=== PATIENT | female | born 1995 | race Caucasian/White ===

== ENCOUNTER 2019-01-24 20:38 | Outpatient (CLI) | payer OTHER, MEDICAID ==
[2019-01-24] MEDS ORDERED: LACTATED RINGER'S 1,000 ML IV (21:00)
[2019-01-24] MEDS: LACTATED RINGER'S 1,000 ML IV (21:02)
[2019-01-24] MEDS: AZITHROMYCIN 500MG/NS (PMX) 250 ML IVPB (21:18)
[2019-01-24 21:55] LABS: ADD MAN DIFF? NO
[2019-01-24 21:57] LABS: WHITE BLOOD COUNT 10.4 10^3/ul (4.8-10.8)
[2019-01-24 21:57] LABS: BASOPHIL # 0.1 10^3/ul (0.0-0.1); BASOPHILS % 0.5 % (0.0-2.0); EOSINOPHILS % 0.2 % (0.0-7.0); HEMATOCRIT 34.2 % (37.0-47.0); HEMOGLOBIN 11.7 g/dl (12.0-16.0); LYMPHOCYTES # 1.3 10^3/ul (0.8-2.9); LYMPHOCYTES % 12.8 % (15.0-51.0); MEAN CORPUSCULAR HEMOGLOBIN 33.2 pg (29.0-33.0); MEAN CORPUSCULAR HGB CONC 34.2 g/dl (32.0-37.0); MEAN CORPUSCULAR VOLUME 97.2 fl (82.0-101.0); MEAN PLATELET VOLUME 9.4 fl (7.4-10.4); MONOCYTE # 0.7 10^3/ul (0.3-0.9); MONOCYTES % 7.1 % (0.0-11.0); NEUTROPHIL # 8.2 10^3/ul (1.6-7.5); NEUTROPHILS % 78.9 % (39.0-77.0); PLATELET COUNT 251 10^3/UL (140-415); RED BLOOD COUNT 3.52 10^6/ul (4.20-5.40); RED CELL DISTRIBUTION WIDTH 12.3 % (11.5-14.5)
[2019-01-24 22:16] LABS: ALANINE AMINOTRANSFERASE 15 IU/L (13-69); ALBUMIN 3.8 g/dl (3.3-4.9); ALBUMIN/GLOBULIN RATIO 1.15; ALKALINE PHOSPHATASE 118 IU/L (42-121); ANION GAP 11 (5-13); ASPARTATE AMINO TRANSFERASE 26 IU/L (15-46); BILIRUBIN,INDIRECT 0.8 mg/dl (0-1.1); BILIRUBIN,TOTAL 0.8 mg/dl (0.2-1.3); BLOOD UREA NITROGEN 6 mg/dl (7-20); CARBON DIOXIDE 21 mmol/L (21-31); CHLORIDE 105 mmol/L (97-110); CREATININE 0.46 mg/dl (0.44-1.00); Estimated GFR > 60 mL/min (>60); GLUCOSE 81 mg/dl (70-220); SODIUM 137 mmol/L (135-144); TOTAL PROTEIN 7.1 g/dl (6.1-8.1)
[2019-01-24] MEDS: ACETAMINOPHEN 1000MG/100ML IV 100 ML IVPB (22:47)
== END 2019-01-24 23:55 | disposition home or self-care (01) ==
LOC: OBT 20:38 → L-D 20:40
DX: O26.892 Other specified pregnancy related conditions, second trimester (principal); Z3A.24 24 weeks gestation of pregnancy; J06.9 Acute upper respiratory infection, unspecified
CPT/HCPCS: 36415; 80053; 85025; 96360; 96361

== ENCOUNTER 2019-05-05 08:47 | Inpatient (IN) | payer OTHER ==
[2019-05-05] MEDS ORDERED: OXYTOCIN 30 UNITS/LR 500 ML IV ×2 (09:00→17:00)
[2019-05-05] MEDS ORDERED: IBUPROFEN 600 MG TAB PO (09:00)
[2019-05-05] MEDS ORDERED: LIDOCAINE 1% (MPF) 30 ML INJ INJ (09:00)
[2019-05-05] MEDS ORDERED: BUTORPHANOL 2 MG INJ IV (09:00)
[2019-05-05] MEDS ORDERED: METHYLERGONOVINE 0.2 MG INJ IM ×2 (09:00→17:00)
[2019-05-05] MEDS ORDERED: CARBOPROST 250 MCG INJ IM ×2 (09:00→17:00)
[2019-05-05] MEDS ORDERED: MISOPROSTOL 200 MCG TAB PR ×2 (09:00→17:00)
[2019-05-05] MEDS: LACTATED RINGER'S 1,000 ML IV ×3 (09:08→10:24)
[2019-05-05 09:19] LABS: ADD MAN DIFF? NO
[2019-05-05 09:21] LABS: WHITE BLOOD COUNT 14.5 10^3/ul (4.8-10.8)
[2019-05-05 09:21] LABS: BASOPHIL # 0.1 10^3/ul (0.0-0.1); BASOPHILS % 0.3 % (0.0-2.0); EOSINOPHILS % 0.3 % (0.0-7.0); HEMATOCRIT 37.7 % (37.0-47.0); HEMOGLOBIN 12.5 g/dl (12.0-16.0); LYMPHOCYTES # 2.2 10^3/ul (0.8-2.9); LYMPHOCYTES % 15.3 % (15.0-51.0); MEAN CORPUSCULAR HGB CONC 33.2 g/dl (32.0-37.0); MEAN CORPUSCULAR VOLUME 93.5 fl (82.0-101.0); MEAN PLATELET VOLUME 10.2 fl (7.4-10.4); MONOCYTES % 6.7 % (0.0-11.0); NEUTROPHIL # 11.2 10^3/ul (1.6-7.5); NEUTROPHILS % 76.8 % (39.0-77.0); PLATELET COUNT 253 10^3/UL (140-415); RED BLOOD COUNT 4.03 10^6/ul (4.20-5.40); RED CELL DISTRIBUTION WIDTH 14.1 % (11.5-14.5)
[2019-05-05] MEDS ORDERED: AMPICILLIN 2 GM/NS (PMX) 100 ML (09:25)
[2019-05-05] MEDS ORDERED: FENTAnyl 2MCG/ML-ROPIV 0.2% 100 ML BAG EPI (09:30)
[2019-05-05] MEDS ORDERED: FENTAnyl 2MCG/ML-ROPIV 0.2% 100 ML (09:30)
[2019-05-05] MEDS ORDERED: NALOXONE (0.4 MG/ML) INJ IV (09:30)
[2019-05-05 09:40] LABS: PROTIME 11.2 Sec (11.9-14.9); PT RATIO 0.9
[2019-05-05 09:41] LABS: PARTIAL THROMBOPLASTIN TIME 28.7 Sec (23.0-35.0)
[2019-05-05] MEDS: AMPICILLIN 2 GM/NS (PMX) 100 ML IV (09:53)
[2019-05-05 10:19] LABS: HEPATITIS B SURFACE ANTIGEN NEGATIVE (NEGATIVE)
[2019-05-05] MEDS: AMPICILLIN 1 GM/NS (PMX) 50 ML IV (13:08)
[2019-05-05] MEDS: OXYTOCIN 30 UNITS/LR 500 ML IV ×2 (14:29→14:35)
[2019-05-05 15:11] LABS: RAPID PLASMA REAGIN NONREACTIVE (NR)
[2019-05-05] MEDS: LACTATED RINGER'S 1,000 ML IV* (16:47)
[2019-05-05] MEDS: DEXTROSE 5%-LR 1,000 ML IV (16:47)
[2019-05-05] MEDS ORDERED: ACETAMINOPHEN 325 MG TAB PO (17:00)
[2019-05-05] MEDS ORDERED: ONDANSETRON 4 MG INJ IV (17:00)
[2019-05-05] MEDS ORDERED: SENNA/DOCUSATE NA (8.6MG/50MG) TAB PO (17:00)
[2019-05-05] MEDS ORDERED: OXYCODONE/ASPIRIN (4.88/325) TAB PO (17:00)
[2019-05-05] MEDS ORDERED: DIPHENHYDRAMINE 50 MG INJ IV (17:00)
[2019-05-05] MEDS ORDERED: DIBUCAINE 1% 30 GM OINT TOP (17:00)
[2019-05-05] MEDS ORDERED: MAGNESIUM HYDROXIDE 30ML CUP PO (17:00)
[2019-05-05] MEDS ORDERED: ZOLPIDEM 5 MG TAB PO (17:00)
[2019-05-05] MEDS: BENZOCAINE 20% 56 ML SPRAY TOP (17:46)
[2019-05-05] MEDS: IBUPROFEN 600 MG TAB PO ×2 (17:46→23:58)
[2019-05-05] MEDS: LANOLIN HPA 1 PKT TOP (17:47)
[2019-05-05] MEDS: WITCH HAZEL/GLYCERIN PAD PR (17:47)
[2019-05-06] MEDS: LACTATED RINGER'S 1,000 ML IV* ×3 (00:47→16:47)
[2019-05-06] MEDS: DEXTROSE 5%-LR 1,000 ML IV ×3 (00:47→16:47)
[2019-05-06] MEDS: IBUPROFEN 600 MG TAB PO ×4 (05:54→23:43)
[2019-05-06 08:21] LABS: ADD MAN DIFF? NO
[2019-05-06 08:32] LABS: BASOPHIL # 0.1 10^3/ul (0.0-0.1); BASOPHILS % 0.4 % (0.0-2.0); EOSINOPHILS # 0.1 10^3/ul (0.0-0.5); EOSINOPHILS % 0.7 % (0.0-7.0); HEMATOCRIT 31.2 % (37.0-47.0); HEMOGLOBIN 10.3 g/dl (12.0-16.0); LYMPHOCYTES # 2.4 10^3/ul (0.8-2.9); LYMPHOCYTES % 20.6 % (15.0-51.0); MEAN CORPUSCULAR HEMOGLOBIN 30.9 pg (29.0-33.0); MEAN CORPUSCULAR VOLUME 93.7 fl (82.0-101.0); MEAN PLATELET VOLUME 10.6 fl (7.4-10.4); MONOCYTES % 8.1 % (0.0-11.0); NEUTROPHIL # 8.2 10^3/ul (1.6-7.5); NEUTROPHILS % 69.7 % (39.0-77.0); PLATELET COUNT 244 10^3/UL (140-415); RED BLOOD COUNT 3.33 10^6/ul (4.20-5.40); RED CELL DISTRIBUTION WIDTH 14.2 % (11.5-14.5)
[2019-05-06 08:32] LABS: WHITE BLOOD COUNT 11.8 10^3/ul (4.8-10.8)
[2019-05-06] MEDS: LANOLIN HPA 1 PKT TOP (14:07)
[2019-05-07] MEDS: IBUPROFEN 600 MG TAB PO ×2 (05:31→12:05)
[2019-05-07] MEDS: MEASLES,MUMPS,RUBELLA VACCINE INJ SC* (08:32)
[2019-05-07] MEDS: DIPHTH/TET/ACEL PERTUSS (ADULT) 0.5 ML VIAL IM* (08:41)
[2019-05-07] MEDS: WITCH HAZEL/GLYCERIN PAD PR (14:50)
== END 2019-05-07 15:35 | disposition home or self-care (01) | DRG 806 ==
LOC: OBT 08:47 → L-D 08:48 → OBT 08:52 → L-D 08:53 → PP1 17:38
PROVIDERS: Obstetrics & Gynecology
PROC: 10E0XZZ Delivery of Products of Conception, External Approach (ICD-10-PCS; principal; 2019-05-05)
PROC: 0UQMXZZ Repair Vulva, External Approach (ICD-10-PCS; 2019-05-05)
PROC: 3E033VJ Introduction of Other Hormone into Peripheral Vein, Percutaneous Approach (ICD-10-PCS; 2019-05-05)
DX: O69.81X0 Labor and delivery complicated by cord around neck, without compression, not applicable or unspecified (principal); O71.4 Obstetric high vaginal laceration alone; Z37.0 Single live birth; O70.0 First degree perineal laceration during delivery; Z3A.39 39 weeks gestation of pregnancy
CPT/HCPCS: 62322; 76815; 85025; 85610; 85730; 86592; 86850; 86900; 86901; 87340; 90715